=== PATIENT | female | born 1985 | race Caucasian/White ===

== ENCOUNTER 2016-08-01 15:25 | Emergency (ER) | payer OTHER ==
[2016-08-01] MEDS ORDERED: Metoclopramide 10 MG/2 ML SDV IVPUSH ONE (16:16)
[2016-08-01] MEDS ORDERED: diphenhydrAMINE 50 MG/ML SDV IVPUSH ONE (16:17)
[2016-08-01] MEDS ORDERED: Ketorolac 30 MG/ML SDV IVPUSH SCH (16:30)
[2016-08-01] MEDS: Sodium Chloride 0.9% 10 ML Syringe FLUSH PRN ×2 (16:41→17:04)
--- NOTE | 2016-08-01 16:44 | EDM.PDOC ---
ED HPI HEADACHE COMPLAINT - General Chief Complaint: Headache Stated Complaint: MIGRAINE Time Seen by Provider: 08/01/16 16:08 Source of Information: Reports: Patient, RN notes reviewed - History of Present Illness INITIAL COMMENTS - FREE TEXT/NARRATIVE: 31-year-old female presents with headache. She does have history of frequent severe migraine headaches. She states she has been doing better in the past 3-6 months or so. However she has had onset of fairly severe headache yesterday, continue to bother her greatly through the night and continues with no relief today. She has worked with her usual meds which often do give decent relief. The headache is frontal, throbbing with nausea but no vomiting. Overall symptoms are similar to what she has had with previous headaches. No recent sinus problems, fever chills or other unusual symptomatology. - Related Data Allergies/ADRs: Allergies Allergy/AdvReac Type Severity Reaction Status Date / Time erythromycin base Allergy Nausea and Verified 04/04/16 20:56 Vomiting Sulfa (Sulfonamide Allergy Rash Verified 04/04/16 20:56 Antibiotics) sulfamethoxazole Allergy Rash Verified 04/04/16 20:56 [From Bactrim] topiramate [From Topamax] Allergy Anxiety Verified 04/04/16 20:56 trimethoprim [From Bactrim] Allergy Rash Verified 04/04/16 20:56 Home Meds: Home Meds Cholecalciferol (Vitamin D3) [Vitamin D3] 5,000 units PO DAILY 04/04/16 [History ] DULoxetine [Cymbalta] 30 mg PO DAILY 04/04/16 [History] Magnesium Oxide [Magnesium] 500 mg PO DAILY 04/04/16 [History] Naproxen 500 mg PO Q12H PRN #10 tablet 04/04/16 [Rx] Norethindrone-Ethinyl Estrad [Natalie 0.5/0.035 mg 28 Tablet] 1 tab PO DAILY [History] Ondansetron [Zofran ODT] 1 tab PO Q8HR PRN 04/04/16 [History] Verapamil [Calan SR] 260 mg PO BEDTIME 04/04/16 [History] metFORMIN HCl [Metformin HCl] 1,000 mg PO BID 04/04/16 [History] Ketorolac [Toradol] 60 mg INJECT Q6H PRN 08/01/16 [History] Levothyroxine 50 mcg PO DAILY 08/01/16 [History] Migranal 1 spray INH ASDIRECTED PRN 08/01/16 [History] Past Medical History 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: Hypertension 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 Other OB/BYN History: ovarian tortion sx Neurological History: Reports: Migraines Psychiatric History: Reports: Depression - Past Surgical History HEENT Surgical History: Reports: Tonsillectomy Social & Family History - Family History Family Medical History: Noncontributory - Tobacco Use Smoking Status *Q: Never Smoker - Caffeine Use Caffeine Use: Reports: None - Recreational Drug Use Recreational Drug Use: No - Living Situation & Occupation Living situation: Reports: , with spouse Occupation: unemployed ED ROS GENERAL - Review of Systems Review Of Systems: See Below Constitutional: Denies: fever, chills, diaphoresis HEENT: Denies: Dental pain, Ear pain, Sinus problem, Throat pain, Vision change Respiratory: Denies: Shortness of Breath Cardiovascular: Denies: Chest pain GI/Abdominal: Reports: Nausea. Denies: Abdominal pain, Diarrhea, Vomiting Musculoskeletal: Denies: neck pain, shoulder pain, back pain Skin: Reports: no symptoms Neurological: Denies: Numbness, Tingling, Trouble Speaking - Physical Exam Exam: See Below General Appearance: alert, moderate distress Eye Exam: bilateral eye: PERRL Throat/Mouth: Normal inspection, Normal oropharynx Head Exam: atraumatic. No: facial swelling Neck: supple, full range of motion Respiratory/Chest: no respiratory distress, lungs clear, normal breath sounds Cardiovascular: regular rate, rhythm GI/Abdominal: soft, non tender Neuro Exam (Abbreviated): alert, oriented, no motor/sensory deficits, other ( Finger to nose testing normal) Extremities: normal inspection, normal range of motion Skin Exam: Warm, Dry, Normal color Course - Vital Signs Last Recorded V/S: Last Vital Signs Temp 96.8 F 08/01/16 15:55 Pulse 83 08/01/16 15:55 Resp 20 08/01/16 15:55 BP 155/97 H 08/01/16 15:55 Pulse Ox 95 08/01/16 15:55 - Orders/Labs/Meds Orders: Active Orders 24 hr Category Date Time Status Peripheral IV Care [RC] . DIRECTED Care 08/01/16 16:16 Active Ketorolac [Toradol] Med 08/01/16 16:30 Active 30 mg IVPUSH ONETIME Sodium Chloride 0.9% [Saline Flush] Med 08/01/16 16:16 Active 10 ml FLUSH ASDIRECTED PRN Peripheral IV Insertion Adult [OM.PC] Stat Oth 08/01/16 16:16 Ordered Medication Orders Ketorolac Tromethamine (Toradol) 30 mg IVPUSH ONETIME ADELFO Last Admin: 08/01/16 16:36 Dose: 30 mg Sodium Chloride (Saline Flush) 10 ml FLUSH ASDIRECTED PRN PRN Reason: Keep Vein Open Last Admin: 08/01/16 17:04 Dose: 10 ml Admin: 08/01/16 16:41 Dose: 10 ml Meds: Medications Generic Name Dose Route Start Last Admin Trade Name Freq PRN Reason Stop Dose Admin Ketorolac Tromethamine 30 mg 08/01/16 16:30 08/01/16 16:36 Toradol IVPUSH 30 mg ONETIME ADELFO Administration Sodium Chloride 10 ml 08/01/16 16:16 08/01/16 17:04 Saline Flush FLUSH 10 ml ASDIRECTED PRN Administration Keep Vein Open Discontinued Medications Generic Name Dose Route Start Last Admin Trade Name Freq PRN Reason Stop Dose Admin Dexamethasone 4 mg 08/01/16 17:48 08/01/16 18:01 Dexamethasone IVPUSH 08/01/16 17:49 4 mg ONETIME ONE Administration Dexamethasone Confirm 08/01/16 18:05 08/01/16 18:13 Dexamethasone Administered 08/01/16 18:06 Not Given Dose 4 mg .ROUTE .STK-MED ONE Diphenhydramine HCl 50 mg 08/01/16 16:17 08/01/16 16:37 Benadryl IVPUSH 08/01/16 16:18 50 mg ONETIME ONE Administration Lorazepam 1 mg 08/01/16 16:53 08/01/16 17:02 Ativan IVPUSH 08/01/16 16:54 1 mg ONETIME ONE Administration Metoclopramide HCl 10 mg 08/01/16 16:16 08/01/16 16:34 Reglan IVPUSH 08/01/16 16:17 10 mg ONETIME ONE Administration - Re-Assessments/Exams Free Text/Narrative Re-Assessment/Exam: 08/01/16 18:00. Patient is obtaining good relief from medications given. She is resting quite comfortably. She feels like she will be able to go home and sleep. Discharge instructions as documented Departure - Departure Time of Disposition: 18:13 Disposition: Home, Self-Care 01 Condition: fair Clinical Impression: Migraine Forms: ED Department Discharge Additional Instructions: Rest, do not drive until morning as multiple sedative medications have been given. Continue with your regular medications as prescribed. Followup clinic as needed, return to ED as needed - My Orders Last 24 Hours: My Active Orders 08/01/16 16:16 Peripheral IV Care [RC] . DIRECTED Sodium Chloride 0.9% [Saline Flush] 10 ml FLUSH ASDIRECTED PRN Peripheral IV Insertion Adult [OM.PC] Stat 08/01/16 16:30 Ketorolac [Toradol] 30 mg IVPUSH ONETIME - Assessment/Plan Last 24 Hours: My Active Orders 08/01/16 16:16 Peripheral IV Care [RC] . DIRECTED Sodium Chloride 0.9% [Saline Flush] 10 ml FLUSH ASDIRECTED PRN Peripheral IV Insertion Adult [OM.PC] Stat 08/01/16 16:30 Ketorolac [Toradol] 30 mg IVPUSH ONETIME
[2016-08-01] MEDS ORDERED: LORazepam 2 MG/ML MDV IVPUSH ONE (16:53)
[2016-08-01] MEDS ORDERED: Dexamethasone 4 MG/ML SDV IVPUSH ONE (17:48)
[2016-08-01] MEDS ORDERED: Dexamethasone 4 MG/ML SDV ONE (18:05)
[2016-08-01 18:38] VITALS: BP 152/97
== END 2016-08-01 18:35 | disposition home or self-care (01) ==
LOC: SUPCPDRO 15:25 → JD.ED 15:25
DX: G43.909 Migraine, unspecified, not intractable, without status migrainosus (principal); I10 Essential (primary) hypertension; F32.9 Major depressive disorder, single episode, unspecified; Z98.890 Other specified postprocedural states; Z79.84 Long term (current) use of oral hypoglycemic drugs; Z79.899 Other long term (current) drug therapy; Z88.1 Allergy status to other antibiotic agents; Z88.2 Allergy status to sulfonamides
CPT/HCPCS: 96374; 96375; 99283; J1100; J1200; J1885; J2060; J2765; J7050; 99284

== ENCOUNTER 2016-09-30 17:04 | Emergency (ER) | payer OTHER ==
[2016-09-30 17:26] VITALS: BP 145/96
--- NOTE | 2016-09-30 17:43 | EDM.PDOC ---
ED HPI GENERAL MEDICAL PROBLEM - General Chief Complaint: Lower Extremity Injury/Pain Stated Complaint: SWOLLEN LEGS, ANKLES AND FEET Time Seen by Provider: 09/30/16 17:30 Source of Information: Reports: Patient, RN Notes Reviewed History Limitations: Reports: No Limitations - History of Present Illness INITIAL COMMENTS - FREE TEXT/NARRATIVE: 31 year old female presents to the ED with bilateral lower extremity edema. She first noticed the symptoms 2-3 weeks ago after her wedding. The swelling improved on its own. Over the past few days, the swelling has gotten worse again. She has no pain or redness in her calf. She went to [place] a couple weeks ago for their honeymoon. No chest pain, cough, shortness of breath or pleuritic chest pain. No history of clotting disorder. She had been on oral contraceptives for several years but stopped it last week because her and her spouse are hoping to get . She has a history of hypertension and was switched from verapamil to nifedipine two weeks ago. She doesn't eat much sodium. No cardiac history or heart problems. Her PCP is Alison Ayala. Bilateral Feet Pain Score (Numeric/FACES): 3 - Related Data Allergies Allergy/AdvReac Type Severity Reaction Status Date / Time erythromycin base Allergy Nausea and Verified 09/30/16 17:22 Vomiting Sulfa (Sulfonamide Allergy Rash Verified 09/30/16 17:22 Antibiotics) sulfamethoxazole Allergy Rash Verified 09/30/16 17:22 [From Bactrim] topiramate [From Topamax] Allergy Anxiety Verified 09/30/16 17:22 trimethoprim [From Bactrim] Allergy Rash Verified 09/30/16 17:22 Home Meds: Home Meds Cholecalciferol (Vitamin D3) [Vitamin D3] 5,000 units PO DAILY 04/04/16 [History ] Magnesium Oxide [Magnesium] 500 mg PO DAILY 04/04/16 [History] Naproxen 500 mg PO Q12H PRN #10 tablet 04/04/16 [Rx] Norethindrone-Ethinyl Estrad [Natalie 0.5/0.035 mg 28 Tablet] 1 tab PO DAILY [History] Ondansetron [Zofran ODT] 1 tab PO Q8HR PRN 04/04/16 [History] metFORMIN HCl [Metformin HCl] 1,000 mg PO BID 04/04/16 [History] Ketorolac [Toradol] 60 mg INJECT Q6H PRN 08/01/16 [History] Levothyroxine 50 mcg PO DAILY 08/01/16 [History] Migranal 1 spray INH ASDIRECTED PRN 08/01/16 [History] NIFEdipine [Adalat cc] 60 mg PO DAILY 09/30/16 [History] hydrALAZINE [Apresoline] 10 mg PO QID #50 tab 09/30/16 [Rx] Past Medical History 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: 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 Other OB/BYN History: ovarian tortion sx Neurological History: Reports: Migraines Psychiatric History: Reports: Depression Endocrine/Metabolic History: Reports: Hypothyroidism - Past Surgical History HEENT Surgical History: Reports: Tonsillectomy Female Surgical History: Reports: Other (See Below) Social & Family History - Family History Family Medical History: Noncontributory - Tobacco Use Smoking Status *Q: Never Smoker - Caffeine Use Caffeine Use: Reports: None - Recreational Drug Use Recreational Drug Use: No - Living Situation & Occupation Living situation: Reports: , with Spouse Occupation: Unemployed ED ROS GENERAL - Review of Systems Review Of Systems: See Below Constitutional: Reports: No Symptoms. Denies: Fever Respiratory: Reports: No Symptoms. Denies: Shortness of Breath, Pleuritic Chest Pain Cardiovascular: Reports: Blood Pressure Problem, Edema. Denies: Chest Pain, Palpitations ED EXAM, GENERAL - Physical Exam Exam: See Below Exam Limited By: No Limitations General Appearance: Alert, WD/WN, No Apparent Distress Respiratory/Chest: No Respiratory Distress, Lungs Clear, Normal Breath Sounds, No Accessory Muscle Use, Chest Non-Tender Cardiovascular: Normal Peripheral Pulses, No Murmur, Tachycardia, Other (2-3+ pitting edema ) Extremities: Pedal Edema. No: Perfecto's Sign, Increased Warmth, Redness Neurological: Alert, Normal Cognition Skin Exam: Warm, Dry, Intact. No: Increased Warmth Course - Vital Signs Last Recorded V/S: Last Vital Signs Temp 98.3 F 09/30/16 17:23 Pulse 105 H 09/30/16 17:23 Resp 16 09/30/16 17:23 BP 145/96 H 09/30/16 17:23 Pulse Ox 98 09/30/16 17:23 - Orders/Labs/Meds Orders: Active Orders 24 hr Category Date Time Status DME for Discharge [COMM] Stat Oth 09/30/16 18:58 Ordered Labs: Laboratory Tests 09/30/16 09/30/16 09/30/16 Range/Units 18:10 18:10 18:10 WBC 10.79 H (3.98-10.04) K/mm3 RBC 4.11 (3.98-5.22) M/mm3 Hgb 12.2 (11.2-15.7) gm/L Hct 36.7 (34.1-44.9) % MCV 89.3 (79.4-94.8) fl MCH 29.7 (25.6-32.2) pg MCHC 33.2 (32.2-35.5) g/dl RDW Std Deviation 45.4 (36.4-46.3) fL Plt Count 430 H (182-369) K/mm3 MPV 8.8 L (9.4-12.3) fl Neut % (Auto) 62.3 (34.0-71.1) % Lymph % (Auto) 29.8 (19.3-51.7) % Benson % (Auto) 6.1 (4.7-12.5) % Eos % (Auto) 1.2 (0.7-5.8) Baso % (Auto) 0.2 (0.1-1.2) % Neut # (Auto) 6.72 H (1.56-6.13) K/mm3 Lymph # (Auto) 3.22 (1.18-3.74) K/mm3 Benson # (Auto) 0.66 H (0.24-0.36) K/mm3 Eos # (Auto) 0.13 (0.04-0.36) K/mm3 Baso # (Auto) 0.02 (0.01-0.08) K/mm3 D-Dimer, Quantitative < 0.19 L (0.19-0.59) mg/L Sodium 141 (136-145) mEq/L Potassium 3.3 L (3.5-5.1) mEq/L Chloride 102 (98-107) mEq/L Carbon Dioxide 23 (21-32) mEq/L Anion Gap 19.3 H (5-15) BUN 14 (7-18) mg/dL Creatinine 0.7 (0.55-1.02) mg/dL Est Cr Clr Drug Dosing 120.58 mL/min Estimated GFR (MDRD) > 60 (>60) mL/min BUN/Creatinine Ratio 20.0 H (14-18) Glucose 91 (74-106) mg/dL Calcium 9.3 (8.5-10.1) mg/dL Total Bilirubin 0.3 (0.2-1.0) mg/dL AST 13 L (15-37) U/L ALT 19 (14-59) U/L Alkaline Phosphatase 102 (46-116) U/L Total Protein 6.9 (6.4-8.2) g/dl Albumin 3.2 L (3.4-5.0) g/dl Globulin 3.7 gm/dL Albumin/Globulin Ratio 0.9 L (1-2) - Re-Assessments/Exams Free Text/Narrative Re-Assessment/Exam: CBC is normal. CMP reveals sodium of 141, potassium 3.3, anion gap of 19. D- dimer is negative. Discussed with Dr. Santizo. He agrees that her edema is likely related to the nifedipine medication. He recommends that she stop the nifedipine and start hydralazine. Discussed with patient. Will start her on hydralazine 10mg QID. This will likely need to be increased. She is to f/u with Alison Ayala this week. Instructed to keep a BP journal. Departure - Departure Time of Disposition: 18:57 Disposition: Home, Self-Care 01 Condition: Good Clinical Impression: Lower extremity edema Prescriptions: hydrALAZINE [Apresoline] 10 mg PO QID #50 tab Instructions: Edema Referrals: Alison Ayala PA-C [Primary Care Provider] - Forms: ED Department Discharge Additional Instructions: Stop the nifedipine Start Hydrolazine 10mg 4 times a day Keep a blood pressure journal Follow-up with Alison Ayala this week for recheck Return to ER with any worsening of symptoms. - My Orders Last 24 Hours: My Active Orders 09/30/16 18:58 DME for Discharge [COMM] Stat - Assessment/Plan Last 24 Hours: My Active Orders 09/30/16 18:58 DME for Discharge [COMM] Stat
== END 2016-09-30 19:10 | disposition home or self-care (01) ==
LOC: JD.ED 17:04
DX: R60.0 Localized edema (principal); I10 Essential (primary) hypertension; G43.909 Migraine, unspecified, not intractable, without status migrainosus; F32.9 Major depressive disorder, single episode, unspecified; E03.9 Hypothyroidism, unspecified; Z88.1 Allergy status to other antibiotic agents; Z88.2 Allergy status to sulfonamides; Z88.8 Allergy status to other drugs, medicaments and biological substances; Z79.899 Other long term (current) drug therapy; Z98.890 Other specified postprocedural states
CPT/HCPCS: 36415; 80053; 85025; 85379; 99283

== ENCOUNTER 2016-10-01 08:43 | Emergency (ER) | payer OTHER ==
[2016-10-01 08:56] VITALS: BP 161/99
--- NOTE | 2016-10-01 09:14 | EDM.PDOC ---
ED HPI GENERAL MEDICAL PROBLEM - General Chief Complaint: Respiratory Problem Stated Complaint: SOB AND LIGHTHEADED SWOLLEN FEET Time Seen by Provider: 10/01/16 09:03 Source of Information: Reports: Patient History Limitations: Reports: No Limitations - History of Present Illness INITIAL COMMENTS - FREE TEXT/NARRATIVE: 31-year-old female presents once again to the ED for the second time with twice in 24 hours. She complains of dyspnea shortness of breath on minimal exertion. She is worked up to the ED yesterday for increasing lower extremity edema over the last 2-3 weeks. It appears that this was secondary to side effect of her nifedipine which she was using for blood pressure control and the extra sheet that's been going on as it is now developing summer. Also been traveling and sitting for prolonged periods of time. A complete workup done yesterday revealed no signs of blood clots with a d-dimer of less than 0.19. Patient is a poor historian but she states she feels lightheaded dizzy and weak. She feels short of breath on exertion. She denies cough or sputum production. No fever or chills. Her O2 sats are 100%. Her respiratory rate is 21-22/m i.e. mildly hyperventilating. Lungs are clear to auscultation percussion. No thing out of whack in her lab work was an anion gap of 19 yesterday I don't have an explanation for this. She did apparently eat supper meal last night. She has not yet eaten today. She denies feeling anxious. At least this does not seem to be in her character. Onset: Today Onset Date: 10/01/16 Onset Time: 06:30 Duration: Hour(s): Location: Reports: Chest (Dyspnea.) Quality: Reports: Other Severity: Moderate (Shortness of breath subjectively.) Improves with: Reports: None Worsens with: Reports: Movement Context: Reports: Other (Dyspnea primarily at rest. This more of a subjective dyspnea.). Denies: Activity, Exercise, Lifting, Sick Contact, Trauma Associated Symptoms: Reports: Malaise, Shortness of Breath (See history of present illness). Denies: Nausea/Vomiting, Rash, Seizure, Syncope Treatments LIFE SKILLS CONSULTANT: Reports: Other (see below) (None) Bilateral Feet Pain Score (Numeric/FACES): 6 - Related Data Allergies Allergy/AdvReac Type Severity Reaction Status Date / Time erythromycin base Allergy Nausea and Verified 10/01/16 08:56 Vomiting Sulfa (Sulfonamide Allergy Rash Verified 10/01/16 08:56 Antibiotics) sulfamethoxazole Allergy Rash Verified 10/01/16 08:56 [From Bactrim] topiramate [From Topamax] Allergy Anxiety Verified 10/01/16 08:56 trimethoprim [From Bactrim] Allergy Rash Verified 10/01/16 08:56 Home Meds: Home Meds Cholecalciferol (Vitamin D3) [Vitamin D3] 5,000 units PO DAILY 04/04/16 [History ] Magnesium Oxide [Magnesium] 500 mg PO DAILY 04/04/16 [History] Naproxen 500 mg PO Q12H PRN #10 tablet 04/04/16 [Rx] Ondansetron [Zofran ODT] 1 tab PO Q8HR PRN 04/04/16 [History] metFORMIN HCl [Metformin HCl] 1,000 mg PO BID 04/04/16 [History] Ketorolac [Toradol] 60 mg INJECT Q6H PRN 08/01/16 [History] Levothyroxine 50 mcg PO DAILY 08/01/16 [History] Migranal 1 spray INH ASDIRECTED PRN 08/01/16 [History] NIFEdipine [Adalat cc] 60 mg PO DAILY 09/30/16 [History] hydrALAZINE [Apresoline] 10 mg PO QID #50 tab 09/30/16 [Rx] Furosemide [Lasix] 40 mg PO DAILY #7 tablet 10/01/16 [Rx] LORazepam [Ativan] 1 mg PO Q8H PRN #10 tablet 10/01/16 [Rx] Past Medical History 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: Hypertension 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 History: Reports: Polycystic Ovaries Other OB/BYN History: ovarian tortion sx Neurological History: Reports: Migraines Psychiatric History: Reports: Depression Endocrine/Metabolic History: Reports: Hypothyroidism - Past Surgical History HEENT Surgical History: Reports: Tonsillectomy Female Surgical History: Reports: Other (See Below) Social & Family History - Family History Family Medical History: Noncontributory - Tobacco Use Smoking Status *Q: Never Smoker - Caffeine Use Caffeine Use: Reports: None - Recreational Drug Use Recreational Drug Use: No - Living Situation & Occupation Living situation: Reports: , with Spouse Occupation: Unemployed ED ROS GENERAL - Review of Systems Review Of Systems: See Below Constitutional: Reports: Weakness, Fatigue. Denies: Fever, Chills, Malaise, Weight Loss HEENT: Reports: No Symptoms Respiratory: Reports: Shortness of Breath Cardiovascular: Reports: Blood Pressure Problem (Chronic hypertension with recent changes to medications due to going to try to conceive a . Verapamil was changed recently to nifedipine. Developing increased the lower extremity edema however I an adverse affect.), Edema (2+ pitting edema lower extremities with moderate swelling of the dorsal feet bilaterally.) Endocrine: Reports: Fatigue GI/Abdominal: Reports: No Symptoms : Reports: No Symptoms Musculoskeletal: Reports: No Symptoms Skin: Reports: No Symptoms Neurological: Reports: Dizziness ED EXAM, GENERAL - Physical Exam Exam: See Below Exam Limited By: No Limitations General Appearance: Alert, WD/WN, No Apparent Distress, Other (O2 sats are 100% on room air.) Throat/Mouth: Normal Inspection, Normal Lips, Normal Teeth, Normal Oropharynx Head: Atraumatic, Normocephalic Neck: Normal Inspection, Supple, Non-Tender, Full Range of Motion Respiratory/Chest: No Respiratory Distress, Lungs Clear, Normal Breath Sounds, No Accessory Muscle Use, Respiratory Distress (Mild tachypnea at rest 21/m. Hyperventilation.) Cardiovascular: Normal Peripheral Pulses (Mild tachycardia at rest 1 or 2/m.), Regular Rate, Rhythm, No Murmur, No Rub, Tachycardia. No: No Edema Peripheral Pulses: 1+: Posterior Tibial (L), Posterior Tibial (R), Dorsalis Pedis (L) (Barely palpable pulses in her feet due to the edema. Posterior tibials are normal.), Dorsalis Pedis (R) Extremities: Normal Inspection, Normal Range of Motion, Non-Tender, No Pedal Edema, Normal Capillary Refill Neurological: Alert, Oriented, CN II-XII Intact, Normal Cognition, Normal Gait, Normal Reflexes, No Motor/Sensory Deficits Psychiatric: Normal Affect, Normal Mood Skin Exam: Dry, Intact, Normal Color, No Rash EKG INTERPRETATION EKG Date: 10/01/16 Time: 09:20 Rhythm: Other Rate (Beats/Min): 103 [place]: LAD-Left [place] Deviation (-54. Soft suspect left anterior fascicular block) P-Wave: Present QRS: Other (Q waves V1 and V2 and V3 with near Q-wave in V4 and V5 suggestive of an old anteroseptal myocardial infarction. There are also Q waves in lead 3 and aVF compatible with old inferior wall myocardial infarction.) ST-T: Normal QT: Normal Course - Vital Signs Last Recorded V/S: Last Vital Signs Temp 36.4 C 10/01/16 08:51 Pulse 102 H 10/01/16 08:51 Resp 21 H 10/01/16 08:51 BP 161/99 H 10/01/16 08:51 Pulse Ox 100 10/01/16 08:51 Orthostatic Blood Pressure [ 142/102 Standing] Orthostatic Blood Pressure [ 137/94 Sitting] Orthostatic Blood Pressure [ 138/93 Supine] - Orders/Labs/Meds Labs: Laboratory Tests 10/01/16 10/01/16 Range/Units 09:35 09:35 Sodium 138 (136-145) mEq/L Potassium 3.9 (3.5-5.1) mEq/L Chloride 100 (98-107) mEq/L Carbon Dioxide 26 (21-32) mEq/L Anion Gap 15.9 H (5-15) BUN 11 (7-18) mg/dL Creatinine 0.7 (0.55-1.02) mg/dL Est Cr Clr Drug Dosing TNP Estimated GFR (MDRD) > 60 (>60) mL/min BUN/Creatinine Ratio 15.7 (14-18) Glucose 98 (74-106) mg/dL Calcium 8.9 (8.5-10.1) mg/dL Total Bilirubin 0.4 (0.2-1.0) mg/dL AST 19 (15-37) U/L ALT 23 (14-59) U/L Alkaline Phosphatase 109 (46-116) U/L Total Protein 7.6 (6.4-8.2) g/dl Albumin 3.3 L (3.4-5.0) g/dl Globulin 4.3 gm/dL Albumin/Globulin Ratio 0.8 L (1-2) Ketones 0.63 (0.0-0.3) mM Meds: Medications Discontinued Medications Generic Name Dose Route Start Last Admin Trade Name Freq PRN Reason Stop Dose Admin Dextrose/Sodium Chloride 1,000 mls @ 999 mls/hr 10/01/16 09:15 06/19/17 09:50 Dextrose 5%-Normal Saline IV 999 mls/hr ASDIRECTED ADELFO Administration Lorazepam 0.5 mg 10/01/16 12:17 10/01/16 12:28 Ativan IVPUSH 10/01/16 12:18 0.5 mg ONETIME ONE Administration - Radiology Interpretation Free Text/Narrative:: 31-year-old female presents to the ED once again in 24 hours with a history as time of dyspnea. Short of breath at rest and on minimal exertion. She is tachypneic at 21/m. She is tachycardic at 10 2/m. She feels lightheaded and dizzy when she stands up. For complete lab work done yesterday and d-dimer was 0.19. Creatinine was 0.7. B1 was 14 E GFR is greater than 60. The only thing that was abnormal was the NI gap at 19.3. This suggests she's been fasting not eating. Suspect accumulation of serum ketones which could cause hyperventilation syndrome and a subjective sense of dyspnea. Plan orthostatic BPs. We'll give her a liter of D5 normal saline. One view chest x-ray to be done - Re-Assessments/Exams Free Text/Narrative Re-Assessment/Exam: 10/01/16 10:00: Chest x-ray does not reveal any abnormalities. We'll proceed with IV fluids D5 normal saline at open. 10/01/16 11:42 labs are back showing a sodium of 138 potassium 3.9. Cord 100 bicarbonate 26. And a gap today is improved to 15.9. Ketones are still elevated at 0.63 normal being up to 0.3 in our lab. Departure - Departure Time of Disposition: 12:41 Disposition: Home, Self-Care 01 Condition: Fair Clinical Impression: Dependent edema, Essential (primary) hypertension Adverse effects of medication Qualifiers: Encounter type: initial encounter Qualified Code(s): T88.7XXA - Unspecified adverse effect of drug or medicament, initial encounter - Discharge Information Prescriptions: Furosemide [Lasix] 40 mg PO DAILY #7 tablet LORazepam [Ativan] 1 mg PO Q8H PRN #10 tablet PRN Reason: anxiety/shortness of breath Instructions: Edema, Drug Allergy, [id number], Hypertension Referrals: Alison Ayala PA-C [Primary Care Provider] - Forms: ED Department Discharge Additional Instructions: Evaluation in the emergency room today in regards to shortness of breath with an anxiety component. Recent changes to blood pressure medications have resulted in significant accumulation of fluid in your lower extremities which we called dependent edema. There is no evidence of heart related illness and blood work done yesterday showed no evidence of blood clot in the lung or anywhere. It did identify that you're dehydrated with an anion gap of 19.6. He was therefore given a liter of IV fluids while in the ED to correct metabolic acidosis. This in itself did not really correct of the feeling of being short of breath. Therefore given Ativan 1 mg IV in the ED to help alleviate anxiety. Plan will be to start new blood pressure medication hydralazine as prescribed yesterday. You can also use Lasix 40 mg in the morning for the next 7 days to reduce fluid in the lower extremities. On average he will lose 6-8 pounds in the next week. Hopefully by then the hydralazine is trying to work and bring your blood pressure under control. It is moderately elevated tends to run around 156 on the top and 108 on the bottom. Goal would be to be under 185 on the top and under 90 on the bottom preferably around 85. Blood pressures randomly at home and write them down with date and time as his doctor decide on medication choices I also did write a prescription for some Ativan tablets that you can take if you could have continued feeling of shortness of breath and or anxiety symptoms over the next few days. 1 tablet every 8 hours may be used if needed. Follow-up with her personal care provider in about 2 weeks' time for blood pressure review.
[2016-10-01] MEDS ORDERED: Dextrose 5%-0.9% NaCl 1,000 ML IV SCH (09:15)
[2016-10-01] MEDS ORDERED: LORazepam 2 MG/ML MDV IVPUSH ONE (12:17)
--- NOTE | 2016-10-02 09:06 | CR ---
Chest: Portable view of the chest was obtained. Comparison: No previous study. Heart size and mediastinum are within normal limits. Lungs are clear. Bony structures are grossly intact. Impression: 1. Nothing acute is identified on portable chest x-ray. Diagnostic code #1
== END 2016-10-01 13:13 | disposition home or self-care (01) ==
LOC: JD.ED 08:43
DX: R60.0 Localized edema (principal); I10 Essential (primary) hypertension; T46.1X5A Adverse effect of calcium-channel blockers, initial encounter; F32.9 Major depressive disorder, single episode, unspecified; E03.9 Hypothyroidism, unspecified; Z88.1 Allergy status to other antibiotic agents; Z88.2 Allergy status to sulfonamides; Z79.84 Long term (current) use of oral hypoglycemic drugs; Z79.899 Other long term (current) drug therapy; Z98.890 Other specified postprocedural states
CPT/HCPCS: 36415; 71010; 80053; 82009; 93005; 96361; 96374; 99285; J2060; J7042; 99284

== ENCOUNTER 2017-03-04 05:48 | Emergency (ER) | payer OTHER ==
[2017-03-04 05:59] VITALS: BP 150/102
[2017-03-04] MEDS ORDERED: Ondansetron 4 MG/2 ML SDV IVPUSH ONE (06:14)
[2017-03-04] MEDS ORDERED: HYDROmorphone 1 MG/ML Syringe IVPUSH ONE (06:14)
[2017-03-04] MEDS ORDERED: Sodium Chloride 0.9% 1,000 ML IV SCH (06:15)
--- NOTE | 2017-03-04 06:34 | EDM.PDOC ---
<Sanjay Skelton - Last Filed: 03/04/17 06:29> ED HPI GENERAL MEDICAL PROBLEM - General Chief Complaint: Abdominal Pain Stated Complaint: LOWER ABDOMIN PAIN Time Seen by Provider: 03/04/17 06:03 Source of Information: Reports: Patient, Family (), RN Notes Reviewed History Limitations: Reports: No Limitations - History of Present Illness INITIAL COMMENTS - FREE TEXT/NARRATIVE: The patient states that she recently discontinued her control pills, because she and her would like to get . She has had a lot of vaginal bleeding recently, especially a couple of days ago. Her bleeding has been associated with right lower quadrant abdominal pain, however, the bleeding has since stopped, but the pain has continued, and is quite severe, similar to when she had a left ovarian torsion in 2011. It is sharp in character. She has not identified any modifiers. She has had nausea, but no emesis. She had watery diarrhea yesterday. No recent fever. No recent urinary symptoms. The patient has been taking [id number] ibuprofen. The patient's PCP is Alison Ayala. Right Lower Abdomen Pain Score (Numeric/FACES): 9 - Related Data Allergies Allergy/AdvReac Type Severity Reaction Status Date / Time erythromycin base Allergy Nausea and Verified 03/04/17 05:59 Vomiting Sulfa (Sulfonamide Allergy Rash Verified 03/04/17 05:59 Antibiotics) sulfamethoxazole Allergy Rash Verified 03/04/17 05:59 [From Bactrim] topiramate [From Topamax] Allergy Anxiety Verified 03/04/17 05:59 trimethoprim [From Bactrim] Allergy Rash Verified 03/04/17 05:59 Home Meds: Home Meds Cholecalciferol (Vitamin D3) [Vitamin D3] 5,000 units PO DAILY 04/04/16 [History ] Magnesium Oxide [Magnesium] 500 mg PO DAILY 04/04/16 [History] Naproxen 500 mg PO Q12H PRN #10 tablet 04/04/16 [Rx] Ondansetron [Zofran ODT] 1 tab PO Q8HR PRN 04/04/16 [History] metFORMIN HCl [Metformin HCl] 1,000 mg PO BID 04/04/16 [History] Ketorolac [Toradol] 60 mg INJECT Q6H PRN 08/01/16 [History] Levothyroxine 50 mcg PO DAILY 08/01/16 [History] Migranal 1 spray INH ASDIRECTED PRN 08/01/16 [History] Acetaminophen/HYDROcodone [[place] 325-5 MG] 1 tab PO Q6H #10 tablet 03/04/17 [Rx] Labetalol [Normodyne] 50 mg PO BID 03/04/17 [History] Ondansetron [Zofran ODT] 4 mg PO Q8H PRN #7 tab.dis 03/04/17 [Rx] Past Medical History 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: Hypertension [employer] History: Reports: Polycystic Ovaries, Other (See Below) (Left ovarian torsion 2011) Neurological History: Reports: Migraines Psychiatric History: Reports: Depression Endocrine/Metabolic History: Reports: Hypothyroidism, Obesity/BMI 30+ - Infectious Disease History Infectious Disease History: Reports: Chicken Pox - Past Surgical History HEENT Surgical History: Reports: Oral Surgery ([place] teeth extraction), Tonsillectomy Female Surgical History: Reports: Oophorectomy (left, partial, ), Other (See Below) (Colposcopy) Social & Family History - Family History Family Medical History: Noncontributory - Tobacco Use Smoking Status *Q: Never Smoker Second Hand Smoke Exposure: No - Caffeine Use Caffeine Use: Reports: None - Alcohol Use Alcohol Use History: Yes Alcohol Use Frequency: Socially - Recreational Drug Use Recreational Drug Use: No - Living Situation & Occupation Living situation: Reports: , with Spouse 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 Constitutional: Reports: No Symptoms HEENT: Reports: No Symptoms Respiratory: Reports: No Symptoms Cardiovascular: Reports: No Symptoms Endocrine: Reports: No Symptoms GI/Abdominal: Reports: No Symptoms : Reports: No Symptoms Musculoskeletal: Reports: No Symptoms Skin: Reports: No Symptoms Neurological: Reports: No Symptoms Psychiatric: Reports: No Symptoms Hematologic/Lymphatic: Reports: No Symptoms Immunologic: Reports: No Symptoms ED EXAM, GENERAL - Physical Exam Exam: See Below Exam Limited By: No Limitations General Appearance: Alert, WD/WN, No Apparent Distress Eye Exam: Bilateral Eye: Normal Inspection Ears: Normal External Exam, Hearing Grossly Normal Nose: Normal Inspection, No Blood Throat/Mouth: Normal Inspection, Normal Lips, Normal Voice, No Airway Compromise Head: Atraumatic, Normocephalic Neck: Normal Inspection, Full Range of Motion Respiratory/Chest: No Respiratory Distress, Lungs Clear, Normal Breath Sounds, No Accessory Muscle Use Cardiovascular: Normal Peripheral Pulses, Regular Rate, Rhythm, No Gallop, No JVD, No Murmur, No Rub Peripheral Pulses: 4+: Radial (L), Radial (R) GI/Abdominal: Normal Bowel Sounds, Soft, No Organomegaly, No Distention, No Abnormal Bruit, No Mass, Tender (Tender in the right lower quadrant only. Nontender elsewhere.), Other (Obese). No: Guarding, Rebound (Female) Exam: Deferred Rectal (Female) Exam: Deferred Back Exam: Normal Inspection, Full Range of Motion. No: CVA Tenderness (L), CVA Tenderness (R) Extremities: Normal Inspection, Normal Range of Motion, No Pedal Edema, Normal Capillary Refill Neurological: Alert, Oriented, Normal Cognition, No Motor/Sensory Deficits Psychiatric: Normal Affect Skin Exam: Warm, Dry, Intact, Normal Color, No Rash Course - Vital Signs Last Recorded V/S: Last Vital Signs Temp 97.7 F 03/04/17 05:55 Pulse 89 03/04/17 05:55 Resp 20 03/04/17 05:55 BP 150/102 H 03/04/17 05:55 Pulse Ox 99 03/04/17 05:55 - Orders/Labs/Meds Labs: Laboratory Tests 03/04/17 03/04/17 03/04/17 Range/Units 06:25 06:25 06:25 WBC 10.22 H (3.98-10.04) K/mm3 RBC 4.32 (3.98-5.22) M/mm3 Hgb 12.7 (11.2-15.7) gm/L Hct 37.6 (34.1-44.9) % MCV 87.0 (79.4-94.8) fl MCH 29.4 (25.6-32.2) pg MCHC 33.8 (32.2-35.5) g/dl RDW Std Deviation 42.5 (36.4-46.3) fL Plt Count 376 H (182-369) K/mm3 MPV 8.9 L (9.4-12.3) fl Neutrophils % (Manual) 62 H (40-60) % Band Neutrophils % 1 (0-10) % Lymphocytes % (Manual) 35 (20-40) % Atypical Lymphs % 0 % Monocytes % (Manual) 2 (2-10) % Eosinophils % (Manual) 0 L (0.7-5.8) % Basophils % (Manual) 0 L (0.1-1.2) Platelet Estimate Adequate RBC Morph Comment Normal Sodium 144 (136-145) mEq/L Potassium 3.5 (3.5-5.1) mEq/L Chloride 105 (98-107) mEq/L Carbon Dioxide 27 (21-32) mEq/L Anion Gap 15.5 H (5-15) BUN 10 (7-18) mg/dL Creatinine 0.8 (0.55-1.02) mg/dL Est Cr Clr Drug Dosing 104.53 mL/min Estimated GFR (MDRD) > 60 (>60) mL/min BUN/Creatinine Ratio 12.5 L (14-18) Glucose 98 (74-106) mg/dL Calcium 8.9 (8.5-10.1) mg/dL Total Bilirubin 0.4 (0.2-1.0) mg/dL AST 12 L (15-37) U/L ALT 26 (14-59) U/L Alkaline Phosphatase 114 (46-116) U/L C-Reactive Protein 2.0 H* (<1.0) mg/dL Total Protein 7.0 (6.4-8.2) g/dl Albumin 3.4 (3.4-5.0) g/dl Globulin 3.6 gm/dL Albumin/Globulin Ratio 0.9 L (1-2) Urine Color (Yellow) Urine Appearance (Clear) Urine pH (5.0-8.0) Ur Specific [place] (1.005-1.030) Urine Protein (Negative) Urine Glucose (UA) (Negative) Urine Ketones (Negative) Urine Occult Blood (Negative) Urine Nitrite (Negative) Urine Bilirubin (Negative) Urine Urobilinogen (0.2-1.0) Ur Leukocyte Esterase (Negative) Urine RBC (0-5) /hpf Urine WBC (0-5) /hpf Ur Epithelial Cells (0-5) /hpf Urine Bacteria (FEW) /hpf Urine Mucus (FEW) /hpf Urine HCG, Qual (NEGATIVE) 03/04/17 03/04/17 Range/Units 06:53 06:53 WBC (3.98-10.04) K/mm3 RBC (3.98-5.22) M/mm3 Hgb (11.2-15.7) gm/L Hct (34.1-44.9) % MCV (79.4-94.8) fl MCH (25.6-32.2) pg MCHC (32.2-35.5) g/dl RDW Std Deviation (36.4-46.3) fL Plt Count (182-369) K/mm3 MPV (9.4-12.3) fl Neutrophils % (Manual) (40-60) % Band Neutrophils % (0-10) % Lymphocytes % (Manual) (20-40) % Atypical Lymphs % % Monocytes % (Manual) (2-10) % Eosinophils % (Manual) (0.7-5.8) % Basophils % (Manual) (0.1-1.2) Platelet Estimate RBC Morph Comment Sodium (136-145) mEq/L Potassium (3.5-5.1) mEq/L Chloride (98-107) mEq/L Carbon Dioxide (21-32) mEq/L Anion Gap (5-15) BUN (7-18) mg/dL Creatinine (0.55-1.02) mg/dL Est Cr Clr Drug Dosing mL/min Estimated GFR (MDRD) (>60) mL/min BUN/Creatinine Ratio (14-18) Glucose (74-106) mg/dL Calcium (8.5-10.1) mg/dL Total Bilirubin (0.2-1.0) mg/dL AST (15-37) U/L ALT (14-59) U/L Alkaline Phosphatase (46-116) U/L C-Reactive Protein (<1.0) mg/dL Total Protein (6.4-8.2) g/dl Albumin (3.4-5.0) g/dl Globulin gm/dL Albumin/Globulin Ratio (1-2) Urine Color Yellow (Yellow) Urine Appearance Clear (Clear) Urine pH 6.0 (5.0-8.0) Ur Specific [place] 1.020 (1.005-1.030) Urine Protein Negative (Negative) Urine Glucose (UA) Negative (Negative) Urine Ketones Negative (Negative) Urine Occult Blood 2+ H (Negative) Urine Nitrite Negative (Negative) Urine Bilirubin Negative (Negative) Urine Urobilinogen 0.2 (0.2-1.0) Ur Leukocyte Esterase 1+ H (Negative) Urine RBC 5-10 H (0-5) /hpf Urine WBC 5-10 H (0-5) /hpf Ur Epithelial Cells 5-10 H (0-5) /hpf Urine Bacteria Few (FEW) /hpf Urine Mucus Not seen (FEW) /hpf Urine HCG, Qual Negative (NEGATIVE) Meds: Medications Discontinued Medications Generic Name Dose Route Start Last Admin Trade Name Zaid PRN Reason Stop Dose Admin Hydromorphone HCl 1 mg 03/04/17 06:14 03/04/17 06:31 Dilaudid IVPUSH 03/04/17 06:15 1 mg ONETIME ONE Administration Hydromorphone HCl 0.5 mg 03/04/17 07:56 03/04/17 07:59 Dilaudid IVPUSH 03/04/17 07:57 0.5 mg ONETIME STA Administration Hydromorphone HCl Confirm 03/04/17 08:02 03/04/17 09:11 Dilaudid Administered 03/04/17 08:03 Not Given Dose 0.5 mg .ROUTE .STK-MED ONE Hydromorphone HCl 0.5 mg 03/04/17 11:05 03/04/17 11:25 Dilaudid IVPUSH 03/04/17 11:06 0.5 mg ONETIME ONE Administration Sodium Chloride 1,000 mls @ 150 mls/hr 03/04/17 06:15 03/04/17 06:29 Normal Saline IV 150 mls/hr ASDIRECTED ADELFO Administration Ketorolac Tromethamine 30 mg 03/04/17 09:15 03/04/17 09:10 Toradol IVPUSH 30 mg ONETIME ADELFO Administration Ondansetron HCl 4 mg 03/04/17 06:14 03/04/17 06:30 Zofran IVPUSH 03/04/17 06:15 4 mg ONETIME ONE Administration - Re-Assessments/Exams Free Text/Narrative Re-Assessment/Exam: 03/04/17 07:[address] Mohsen Dela Cruz, and care of the patient turned over to him at this time, for change of shift. Departure - Departure Disposition: Home, Self-Care 01 Clinical Impression: Abdominal pain Qualifiers: Abdominal location: right lower quadrant Qualified Code(s): R10.31 - Right lower quadrant pain - Discharge Information Prescriptions: Acetaminophen/HYDROcodone [[place] 325-5 MG] 1 tab PO Q6H #10 tablet Ondansetron [Zofran ODT] 4 mg PO Q8H PRN #7 tab.dis PRN Reason: Nausea/Vomiting Instructions: Abdominal Pain, Adult Referrals: Alison Ayala PA-C [Primary Care Provider] - Forms: ED Department Discharge Additional Instructions: Rest, clear liquids and very careful bland diet as tolerated, Zofran if needed for any nausea or vomiting type symptomatology, Tylenol or Motrin for mild to moderate discomfort or hydrocodone if needed for more severe pain. See Dr. Palma at clinic next available appointment, return to ED if symptoms worsening in any way <Mohsen Dela Cruz - Last Filed: 03/04/17 17:26> Course - Re-Assessments/Exams Free Text/Narrative Re-Assessment/Exam: 03/04/17 09:44. Have assumed care from Dr. Skelton after change of shift. I agree with his history and exam as documented. Of note patient and her do tell me that she did have fairly severe frequent repetitive diarrhea 2 days ago and early yesterday with no further diarrhea last evening or during the night. They had eaten ALT the night before raising the possibility of there being an intestinal: Component to her current discomfort. Ultrasound did come back not showing any sign of acute abnormality for the pelvis. Because of continued sharp shooting pains right flank and right lower abdomen radiating toward the groin I did order renal CT to rule out kidney stone or something of that nature. We have continued to titrate Dilaudid for pain and that does help but then the pain does keep coming back. 11:20. Renal CT did not show acute abnormality. Appendix was visualized with no evidence for inflammation. She was continuing to have moderately severe sharp shooting pains so have given further IV Dilaudid. 03/04/17 11:52. Feeling somewhat better, pelvic exam did not show acute abnormality. Appears much more relaxed. Minimal tenderness right lower quadrant at this time. Discharge instructions as documented Departure - Departure Time of Disposition: 11:52 Condition: Fair
[2017-03-04] MEDS ORDERED: HYDROmorphone 0.5 MG/0.5 ML Syringe IVPUSH STA (07:56)
[2017-03-04] MEDS ORDERED: HYDROmorphone 0.5 MG/0.5 ML Syringe ONE (08:02)
--- NOTE | 2017-03-04 08:22 | US ---
Pelvic ultrasound: Multiple real-time images were obtained transvaginally. Comparison: No prior pelvic ultrasound. Findings: Uterus is anteverted. Fibroid is identified within the body of the uterus anteriorly measuring approximately 2.0 cm. Incidental nabothian cyst is present. Endometrial thickness is difficult to measure as a good endometrial stripe is not seen. Right ovary is felt to be within normal limits. Left ovary not visualized. No free fluid is seen. Measurements: Uterus: Length 8.9 cm, AP height 4.7 cm, transverse width 5.1 cm Right ovary: 3.9 x 2.3 x 2.5 cm Impression: 1. Small uterine fibroid and incidental nabothian cyst. 2. Right ovary does not appear enlarged with no ultrasound evidence to indicate definite distortion. 3. Poorly seen left ovary. Poorly seen endometrial stripe. Diagnostic code #2
[2017-03-04] MEDS ORDERED: Ketorolac 30 MG/ML SDV IVPUSH SCH (09:15)
--- NOTE | 2017-03-04 09:30 | CT ---
CT abdomen and pelvis Technique: Multiple axial sections were obtained from above the kidneys inferiorly through the pubic symphysis. Intravenous and oral contrast not utilized. Study has been performed as a ureteral stone protocol. Comparison: No prior CT exam. Findings: Left kidney shows a very minimal nonobstructing stone within the inferior pole. 2 small nonobstructing calculi are noted within the right kidney. Largest stone measures about 3 mm. No ureteral dilatation or ureteral calculi are seen. Visualized lung bases shows nothing acute. Fatty infiltration is identified throughout the liver. Spleen appears within normal limits. Adrenal glands show no nodule. Gallbladder contains no calcified gallstones. Pancreas is within normal limits. Aorta shows no aneurysmal dilatation. No retroperitoneal adenopathy is seen. Appendix is seen which appears normal. No pelvic mass or adenopathy is seen. No free fluid or inflammatory change is seen. Bone window settings were reviewed which shows degenerative spurring within the lower thoracic spine. Impression: 1. Small nonobstructing calculi within both kidneys. No ureteral dilatation or ureteral stone is seen. 2. Fatty infiltration within the liver. 3. Nothing acute is identified on noncontrast CT study of the abdomen and pelvis. Diagnostic code #3
[2017-03-04] MEDS ORDERED: HYDROmorphone 0.5 MG/0.5 ML Syringe IVPUSH ONE (11:05)
== END 2017-03-04 12:20 | disposition home or self-care (01) ==
LOC: JD.ED 05:48
DX: R10.31 Right lower quadrant pain (principal); Z79.899 Other long term (current) drug therapy; Z88.2 Allergy status to sulfonamides; Z88.1 Allergy status to other antibiotic agents
CPT/HCPCS: 36415; 74176; 76830; 80053; 81001; 81025; 85025; 86140; 96361; 96374; 96375; 96376; 99284; J1170; J1885; J2405; J7040

== ENCOUNTER → 2019-09-10 | Day surgery (SDC) | payer OTHER ==
[~2019-09-10] MED LIST: Acetaminophen/HYDROcodone 325-5 MG Tab PO SCH; Bupivacaine 0.25% 10 ML SDV ONE; Ketorolac 30 MG/ML SDV ONE; Lactated Ringers 1,000 ML IV SCH; Lactated Ringers 1,000 ML ONE; Lidocaine 1% 4 ML ONE; Lidocaine 1%/Sod Bicarbonate in NS 8.4% 1 ML Syringe IDERM PRN; Metoprolol Tartrate 5 MG/5 ML SDV ONE; Midazolam 1 MG/ML 2 ML SDV ONE; Ondansetron 4 MG/2 ML SDV ONE; Propofol 200 MG/20 ML SDV ONE; Sodium Chloride 0.9% 10 ML Syringe FLUSH PRN; ceFAZolin 1 GM Vial ONE; diphenhydrAMINE 50 MG/ML SDV ONE; fentaNYL 100 MCG/2 ML SDV ONE
--- NOTE | 2019-09-10 06:59 | PCM.PREANE ---
Preanesthetic Assessment - Anesthesia/Transfusion/Family Hx Anesthesia History: Prior Anesthesia Without Reaction - Review of Systems General: No Symptoms Pulmonary: No Symptoms Cardiovascular: No Symptoms Gastrointestinal: No Symptoms Neurological: No Symptoms Other: Reports: None - Physical Assessment NPO Status Date: 09/09/19 NPO Status Time: 19:00 Vital Signs: Last Vital Signs Temp 98.6 F 09/10/19 06:05 Pulse 89 09/10/19 06:05 Resp 16 09/10/19 06:05 BP 145/89 H 09/10/19 06:05 Pulse Ox 100 09/10/19 06:05 Height: 1.75 m Weight: 109.769 kg ASA Class: 2 Mental Status: Alert & Oriented x3 Airway Class: Mallampati = 1 Dentition: Reports: Normal Dentition Thyro-Mental Finger Breadths: 3 Mouth Opening Finger Breadths: 3 ROM/Head Extension: Full Lungs: Clear to Auscultation, Normal Respiratory Effort Cardiovascular: Regular Rate, Regular Rhythm - Lab Values: Laboratory Last Values Urine HCG, Qual Negative (NEGATIVE) 09/10/19 06:00 SARS Virus RNA (PCR) Negative (NEGATIVE) 09/08/19 11:30 MRSA (PCR) Negative 09/02/19 17:01 - Allergies Allergies/Adverse Reactions: Allergies Allergy/AdvReac Type Severity Reaction Status Date / Time erythromycin base Allergy Nausea and Verified 09/09/19 11:20 Vomiting Sulfa (Sulfonamide Allergy Rash Verified 09/09/19 11:20 Antibiotics) sulfamethoxazole Allergy Rash Verified 09/09/19 11:20 [From Bactrim] topiramate [From Topamax] Allergy Anxiety Verified 09/09/19 11:20 trimethoprim [From Bactrim] Allergy Rash Verified 09/09/19 11:20 - Acknowledgements Anesthesia Type Planned: General Anesthesia, MAC Pt an Appropriate Candidate for the Planned Anesthesia: Yes Alternatives and Risks of Anesthesia Discussed w Pt/Guardian: Yes Pt/Guardian Understands and Agrees with Anesthesia Plan: Yes PreAnesthesia Questionnaire 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: Hypertension Respiratory History: Reports: Bronchitis, Recurrent Gastrointestinal History: Reports: None Genitourinary History: Reports: Renal Calculus 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 SPECIALIST History: Reports: Polycystic Ovaries, Other (See Below) Other OB/BYN History: ovarian tortion sx Musculoskeletal History: Reports: Other (See Below) Other Musculoskeletal History: myofascial pain, right wrist carpal syndrome Neurological History: Reports: Migraines, Other (See Below) Other Neuro History: cerviclagia Psychiatric History: Reports: Depression Endocrine/Metabolic History: Reports: Hypothyroidism, Obesity/BMI 30+ Hematologic History: Reports: None Immunologic History: Reports: None Oncologic (Cancer) History: Reports: None Dermatologic History: Reports: None - Infectious Disease History Infectious Disease History: Reports: None - Past Surgical History Head Surgeries/Procedures: Reports: None HEENT Surgical History: Reports: Oral Surgery, Tonsillectomy Cardiovascular Surgical History: Reports: None Respiratory Surgical History: Reports: None GI Surgical History: Reports: Colonoscopy Female Surgical History: Reports: Oophorectomy, Other (See Below) Endocrine Surgical History: Reports: None Neurological Surgical History: Reports: None Musculoskeletal Surgical History: Reports: None Oncologic Surgical History: Reports: None Dermatological Surgical History: Reports: None - SUBSTANCE USE Smoking Status *Q: Never Smoker Recreational Drug Use History: No - HOME MEDS Home Medications: Home Meds Cholecalciferol (Vitamin D3) [Vitamin D3] 5,000 units PO DAILY 04/04/16 [History ] Magnesium Oxide [Magnesium] 500 mg PO DAILY 04/04/16 [History] Ketorolac [Toradol] 60 mg INJECT Q6H PRN 08/01/16 [History] Labetalol [Normodyne] 50 mg PO DAILY 03/04/17 [History] Ondansetron [Zofran ODT] 4 mg PO Q8H PRN #7 tab.dis 03/04/17 [Rx] Dihydroergotamine [Migranal] 1 dose DEANDRE ASDIRECTED PRN 09/09/19 [History] Vits #93/Iron Fum/FA [ Formula Tablet] 1 tab PO DAILY 09/09/19 [History] Zolpidem Tartrate [Ambien] 10 mg PO BEDTIME PRN 09/09/19 [History] metFORMIN HCl [Metformin HCl ER] 1,500 mg PO DAILY 09/09/19 [History] norgestimate-ethinyl estradioL [Ortho Tri-Cyclen 28 Tablet] 1 tab PO DAILY 09/08 [History] Acetaminophen/HYDROcodone [Wishram 325-5 MG] 1 - 2 tab PO Q6H PRN #15 tablet 09/09 [Rx] Levothyroxine [Synthroid] 50 mcg PO DAILY 09/10/19 [History] - CURRENT (IN HOUSE) MEDS Current Meds: Current Medications Lactated Ringer's (Ringers, Lactated) 1,000 mls @ 125 mls/hr IV ASDIRECTED ADELFO Stop: 09/10/19 23:00 Lidocaine/Sodium Bicarbonate (Buffered Lidocaine 1% In Ns 8.4%) 0.25 ml IDERM ONETIME PRN PRN Reason: Prior to IV Start Stop: 09/10/19 18:00 Sodium Chloride (Saline Flush) 10 ml FLUSH ASDIRECTED PRN PRN Reason: Keep Vein Open Stop: 09/10/19 18:00 Discontinued Medications Bupivacaine HCl (Sensorcaine-Mpf 0.25%) Confirm Administered Dose 20 ml .ROUTE .STK-MED ONE Stop: 09/10/19 06:38 Lidocaine HCl (Xylocaine-Mpf 1%) Confirm Administered Dose 30 ml .ROUTE .STK- MED ONE Stop: 09/10/19 06:38
[2019-09-10] MEDS: Lidocaine 1% 30 ML SDV ONE ×2 (07:34→08:21)
[2019-09-10 08:30] VITALS: BP 163/89; PULSE 76
--- NOTE | 2019-09-10 08:44 | PCM.OPNOTE ---
- General Post-Op/Procedure Note Date of Surgery/Procedure: 09/10/19 Operative Procedure(s): right first dorsal compartment relelase with right carpal tunnel release Pre Op Diagnosis: right wrist dequervains tenosynovitis and right median nerve compression neuropathy Post-Op Diagnosis: Same Anesthesia Technique: Local, MAC Primary Surgeon: Rene Hensley Anesthesia Provider: Jan Bay Field Consultant: Jill Ribera EBL in mLs: 5 Complications: None Condition: Good
--- NOTE | 2019-09-10 09:52 | PCM48HPAN ---
Post Anesthesia Note - EVALUATION WITHIN 48HRS OF ANESTHETIC Vital Signs in Normal Range: Yes Patient Participated in Evaluation: Yes Respiratory Function Stable: Yes Airway Patent: Yes Cardiovascular Function Stable: Yes Hydration Status Stable: Yes Pain Control Satisfactory: Yes Nausea and Vomiting Control Satisfactory: Yes Mental Status Recovered: Yes Vital Signs: Last Vital Signs Temp 98.3 F 09/10/19 08:21 Pulse 76 09/10/19 08:21 Resp 16 09/10/19 08:21 BP 163/89 H 09/10/19 08:21 Pulse Ox 100 09/10/19 08:21
--- NOTE | 2019-09-17 08:16 | OR ---
DATE OF OPERATION: 09/10/2019 SURGEON: Rene Hensley MD OPERATION PERFORMED: Right first dorsal compartment release with right carpal tunnel release. PREOPERATIVE DIAGNOSIS: Right wrist de Quervain tenosynovitis and right median nerve compression neuropathy. POSTOPERATIVE DIAGNOSIS: Right wrist de Quervain tenosynovitis and right median nerve compression neuropathy. ANESTHESIA: Local MAC. ANESTHESIA PROVIDER: Luz Marina Jordan. RETURNS PROCESSOR: Jill Ribera PA-C. ESTIMATED BLOOD LOSS: 20 mL. COMPLICATIONS: None. CONDITION: Stable. DESCRIPTION OF PROCEDURE: The patient was identified in the preop holding area. Proper site was marked and identified by the surgeon. The patient was taken back to the operating theater where after adequate anesthesia, the patient's right upper extremity was sterilely prepped and draped in the usual sterile fashion. OR time-out was performed. The patient received 2 g IV Ancef. At this time, right upper extremity was exsanguinated with an Esmarch and the Esmarch was used as a tourniquet on the forearm. A transverse incision was made over the first dorsal compartment after 0.25% Marcaine and 1% lidocaine were used to anesthetize the site. This was taken down to the first dorsal compartment at this time with the use of a Ravalli blade and tenotomy scissors. The first dorsal compartment was visualized and was released dorsally. There was noted to be another tendon slip in there and that was also released as well. All 3 tendons were tracked both proximally distally and found to be adequately released. There was no volar subluxation noted. At this time, attention was turned to the carpal tunnel. Incisional site was localized and incision was made to the skin. Ravalli blade was used to release the palmar cutaneous fascia and a small rent was made in the transverse carpal ligament. The ligament was released distally with a tenotomy scissors all the way distally stopping short of the palmar arch. Attenion was turned proximally and the superficial forearm fascia as well as the transverse carpal ligament was release proxiamlly keeping the tips ulnar to protect the palmar cutenous nerve. incision was irrigated and then closed in the standard fashion. Patient was placed in a sterile soft dressing as well as a radial thumb spica splint and sent to the PACU. The patient tolerated all procedures well and was sent to the PACU in stable condition.. MMODAL /[id number]
== END | disposition home or self-care (01) ==
LOC: JD.SDS 06:02
PROVIDERS: ATTEND Orthopaedic Surgery
DX: G56.01 Carpal tunnel syndrome, right upper limb (principal); M65.4 Radial styloid tenosynovitis [de Quervain]; G56.11 Other lesions of median nerve, right upper limb; E66.9 Obesity, unspecified; I10 Essential (primary) hypertension; E78.5 Hyperlipidemia, unspecified; F32.9 Major depressive disorder, single episode, unspecified; E03.9 Hypothyroidism, unspecified; Z79.890 Hormone replacement therapy; Z68.34 Body mass index [BMI] 34.0-34.9, adult; Z88.1 Allergy status to other antibiotic agents; Z88.2 Allergy status to sulfonamides; Z88.8 Allergy status to other drugs, medicaments and biological substances; Z79.899 Other long term (current) drug therapy
CPT/HCPCS: 25000; 64721; 81025; 87635; 87641; A9270; J0690; J1200; J2001; J2250; J2405; J2704; J3010; J3490; J7120; 01810; J1885; U0002

== ENCOUNTER 2025-02-09 06:15 | Inpatient (IN) | payer OTHER ==
[~2025-02-09 06:15] MED LIST changes: -Acetaminophen/HYDROcodone 325-5 MG Tab PO SCH; -Bupivacaine 0.25% 10 ML SDV ONE; -Ketorolac 30 MG/ML SDV ONE; -Lactated Ringers 1,000 ML IV SCH; -Lactated Ringers 1,000 ML ONE; -Lidocaine 1% 4 ML ONE; -Lidocaine 1%/Sod Bicarbonate in NS 8.4% 1 ML Syringe IDERM PRN; -Metoprolol Tartrate 5 MG/5 ML SDV ONE; -Midazolam 1 MG/ML 2 ML SDV ONE; -Ondansetron 4 MG/2 ML SDV ONE; -Propofol 200 MG/20 ML SDV ONE; -ceFAZolin 1 GM Vial ONE; -diphenhydrAMINE 50 MG/ML SDV ONE; -fentaNYL 100 MCG/2 ML SDV ONE
[2025-02-09] MEDS: Lactated Ringers 1,000 ML IV SCH ×2 (06:30→12:47)
[2025-02-09] MEDS ORDERED: Lidocaine 1% with EPINEPHrine 1:100,000 20 ML MDV ONE (06:58)
[2025-02-09] MEDS ORDERED: propofoL 500 MG/50 ML 50 ML ONE ×3 (07:08→09:01)
[2025-02-09] MEDS ORDERED: Propofol 200 MG/20 ML SDV ONE ×3 (07:11→10:06)
[2025-02-09] MEDS ORDERED: fentaNYL 250 MCG/5 ML SDV ONE ×2 (07:12→08:37)
[2025-02-09] MEDS ORDERED: Ondansetron 4 MG/2 ML SDV ONE (07:13)
[2025-02-09] MEDS ORDERED: Ketorolac 30 MG/ML SDV ONE (07:13)
[2025-02-09] MEDS ORDERED: Dexamethasone 4 MG/ML 5 ML MDV ONE (07:13)
[2025-02-09] MEDS ORDERED: dexmedeTOMIDine HCl 200 MCG/2 ML SDV ONE (07:15)
[2025-02-09 07:27] LABS: BASOPHILS ABSOLUTE AUTO 0.0 K/mm3 (0.0-0.2); BASOPHILS PERCENT AUTO 0.3 % (0.0-1.0); EOSINOPHILS ABSOLUTE AUTO 0.2 K/mm3 (0.0-0.4); EOSINOPHILS PERCENT AUTO 2.0 % (0.0-6.0); IMMATURE GRAN ABSOLUTE AUTO 0.06 K/mm3 (0.00-0.05); IMMATURE GRAN PERCENT AUTO 0.7 % (0.0-0.4); LYMPHOCYTES ABSOLUTE AUTO 2.6 K/mm3 (1.0-4.8); LYMPHOCYTES PERCENT AUTO 29.7 % (24.0-44.0); MEAN PLATELET VOLUME 9.1 fl (9.4-12.3); MONOCYTES ABSOLUTE AUTO 0.6 K/mm3 (0.0-0.8); MONOCYTES PERCENT AUTO 6.3 % (0.0-8.0); NEUTROPHILS ABSOLUTE AUTO 5.4 K/mm3 (1.8-7.7); NEUTROPHILS PERCENT AUTO 61.0 % (41.0-71.0); NRBC ABSOLUTE 0.00 (0.00-0.02); NRBC PERCENT 0.0 % (0.0-0.2); PLATELET COUNT,PLT 408 K/mm3 (150-400); RED BLOOD CELL COUNT 4.64 M/mm3 (4.10-5.30); WHITE BLOOD CELL COUNT,WBC 8.83 K/mm3 (3.9-11.3)
[2025-02-09 07:44] LABS: BLOOD UREA NITROGEN,BUN 12.0 mg/dL (7-18); CARBON DIOXIDE,CO2 27.0 mEq/L (21-32); CHLORIDE,CL 99.0 mEq/L (98-107); CREATININE 0.7 mg/dL (0.55-1.02); EST CRCL DRUG DOSING (CG) 99.01 mL/min; ESTIMATED GFR 111.0 mL/min (>60); GLUCOSE RANDOM 85.0 mg/dL (70-99); POTASSIUM,K 3.8 mEq/L (3.5-5.1); SODIUM,NA 139.0 mEq/L (136-145)
[2025-02-09] MEDS ORDERED: Lactated Ringers 1,000 ML ONE ×2 (08:31→09:45)
[2025-02-09] MEDS ORDERED: Labetalol 100 MG/20 ML MDV ONE (08:47)
[2025-02-09] MEDS ORDERED: fentaNYL 100 MCG/2 ML SDV ONE (10:49)
[2025-02-09] MEDS: fentaNYL 100 MCG/2 ML SDV IVPUSH PRN (11:45)
[2025-02-09] MEDS: Sodium Chloride 0.9% 10 ML Syringe FLUSH SCH (12:26)
[2025-02-09] MEDS: Ketorolac 30 MG/ML SDV IVPUSH SCH (16:33)
[2025-02-09] MEDS: Ondansetron 4 MG/2 ML SDV IVPUSH PRN (17:10)
[2025-02-10 04:26] LABS: MEAN PLATELET VOLUME 9.0 fl (9.4-12.3); NRBC ABSOLUTE 0.00 (0.00-0.02); NRBC PERCENT 0.0 % (0.0-0.2); PLATELET COUNT,PLT 355 K/mm3 (150-400); RED BLOOD CELL COUNT 3.45 M/mm3 (4.10-5.30); WHITE BLOOD CELL COUNT,WBC 13.44 K/mm3 (3.9-11.3)
[2025-02-10 04:54] LABS: A/G RATIO 0.9 (1-2); ALANINE AMINOTRANSFERASE,ALT 25.0 U/L (14-59); ASPARTATE AMNIOTRANSFERASE,AST 9.0 U/L (15-37); BILIRUBIN TOTAL 0.7 mg/dL (0.2-1.0); BLOOD UREA NITROGEN,BUN 6.0 mg/dL (7-18); CARBON DIOXIDE,CO2 25.0 mEq/L (21-32); CHLORIDE,CL 103.0 mEq/L (98-107); CREATININE 0.7 mg/dL (0.55-1.02); EST CRCL DRUG DOSING (CG) 99.01 mL/min; ESTIMATED GFR 111.0 mL/min (>60); GLUCOSE RANDOM 120.0 mg/dL (70-99); POTASSIUM,K 4.2 mEq/L (3.5-5.1); PROTEIN TOTAL,TP 5.9 g/dl (6.4-8.2); SODIUM,NA 138.0 mEq/L (136-145)
[2025-02-10] MEDS ORDERED: Sodium Chloride 0.9% 10 ML Syringe FLUSH PRN (06:47)
[2025-02-10] MEDS ORDERED: Ondansetron 4 MG Tab.DIS PO PRN (06:47)
[2025-02-10 12:10] VITALS: BP 151/73; PULSE 78
== END 2025-02-10 18:10 | disposition home or self-care (01) | DRG 743 ==
LOC: JD.SDS 06:15 → JD.OB 11:03
PROVIDERS: ADMIT Obstetrics & Gynecology; ATTEND Obstetrics & Gynecology
PROC: 0UT90ZZ Resection of Uterus, Open Approach (ICD-10-PCS; principal; 2025-02-09 07:30)
PROC: 0UN90ZZ Release Uterus, Open Approach (ICD-10-PCS; principal; 2025-02-09 07:30)
DX: D25.9 Leiomyoma of uterus, unspecified (principal); N92.1 Excessive and frequent menstruation with irregular cycle; N80.9 Endometriosis, unspecified; I10 Essential (primary) hypertension; G43.909 Migraine, unspecified, not intractable, without status migrainosus; K66.0 Peritoneal adhesions (postprocedural) (postinfection); N87.9 Dysplasia of cervix uteri, unspecified; N94.6 Dysmenorrhea, unspecified; F32.A Depression, unspecified; E03.9 Hypothyroidism, unspecified; E66.9 Obesity, unspecified; Z68.35 Body mass index [BMI] 35.0-35.9, adult; Z90.49 Acquired absence of other specified parts of digestive tract; Z88.2 Allergy status to sulfonamides; Z88.8 Allergy status to other drugs, medicaments and biological substances; Z98.890 Other specified postprocedural states; Z79.899 Other long term (current) drug therapy; Z79.84 Long term (current) use of oral hypoglycemic drugs
CPT/HCPCS: 00944; 36415; 80048; 80053; 81025; 85025; 85027; 86850; 86900; 86901; 94761; A9270-GY; J0665; J0690; J1100; J1171; J1885; J1920; J2004; J2270; J2405; J2704; J3010; J3490; J7120